=== PATIENT | female | born 1965 | race Hispanic/Latino ===

== ENCOUNTER 2017-05-19 15:12 | Emergency (ER) | payer MEDICAID, OTHER ==
[2017-05-19 15:24] VITALS: BP 132/74; RESP 16; TEMP 98; O2SAT 100
[2017-05-19] MEDS ORDERED: Sodium Chloride 0.9% 1,000 ML IV STA (16:38)
--- NOTE | 2017-05-19 17:02 | ED PDOC ---
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 Patient states her overall presentation of symptoms started yesterday that progressed to today when she experienced an associated headache that resolved after taking Motrin. She states she went to see her PMD, Dr. Steven Love, and found her Blood Pressure to be elevated. She was prescribed Losartan when leaving and took her first dose after getting her prescription filled at the pharmacy. She reports after taking the pill she started to develop dizziness while walking around associated with chest pain that resolved on its own. She sat on a bench and felt light-headed, prompting her to seek medical attention. Upon arrival via EMS , she still complains of dizziness, nausea, and light headedness. Patient further states yesterday she was feeling as if she was having an episode of an absence seizure but was unsure if it was absence or near-syncopal. Patient routinely takes medication for her seizures. Against Medical Advice - AMA Patient Left Against Medical Advice: The patient declines admission to the hospital and wishes to leave the Emergency Department. This action is against my medical advice. This decision was made with informed refusal. The patient was told that admission to the hospital is necessary. Explanation of the reasons why were discussed. The risks of leaving were explained to the patient and include, but are not limited to, worsening of known or currently unknown conditions, permanent disability and from undiagnosed or untreated conditions. The patient has the capacity to make this informed decision and understands my explanation of the current medical problem and risks of leaving. The patient voluntarily accepts these risks and signed an AMA form documenting our conversation. The patient was given the opportunity to ask questions and reconsider. The patient was encouraged to return to the Emergency Department at any time for further care. Past Medical History Reviewed: Historical Data, Nursing Documentation, Vital Signs Vital Signs: Last Vital Signs Temp 98.0 F 05/19/17 15:19 Pulse 70 05/19/17 15:19 Resp 16 05/19/17 15:19 BP 132/74 05/19/17 15:19 Pulse Ox 100 05/19/17 15:19 - Medical History PMH: HTN Other PMH: absence seizure - Surgical History Other surgeries: left breast lumpectomy - Family History Family History: States: No Known Family Hx - Home Medications Home Medications: Ambulatory Orders Medication Instructions Recorded Clindamycin [Cleocin] 300 mg PO TID #30 cap 08/04/14 - Allergies Allergies/Adverse Reactions: Allergies Allergy/AdvReac Type Severity Reaction Status Date / Time Penicillins Allergy RASH Verified 05/19/17 15:19 Sulfa (Sulfonamide Allergy RASH Verified 05/19/17 15:19 Antibiotics) Review of Systems ROS Statement: Except As Marked, All Systems Reviewed And Found Negative Cardiovascular: 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 Negative for: Weakness, Numbness Physical Exam - Reviewed Nursing Documentation Reviewed: Yes Vital Signs Reviewed: Yes - Physical Exam Appears: Positive for: Non-toxic, No Acute Distress. Negative for: Uncomfortable (pt appears comfortable ) Head Exam: Positive for: ATRAUMATIC, NORMOCEPHALIC Skin: Positive for: Normal Color. Negative for: Rash Eye Exam: Positive for: Normal appearance, EOMI, PERRL Neck: Positive for: Normal, Painless ROM, Supple Cardiovascular/Chest: Positive for: Regular Rate, Rhythm. Negative for: Murmur Respiratory: Positive for: Normal Breath Sounds. Negative for: Wheezing, Respiratory Distress Gastrointestinal/Abdominal: Positive for: Normal Exam, Soft. Negative for: Tenderness Extremity: Positive for: Normal ROM. 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 Negative for: Motor/Sensory Deficits - Laboratory Results Result Diagrams: 05/19/17 17:00 05/19/17 17:00 - ECG ECG: Positive for: Interpreted By Me, Viewed By Me ECG Rhythm: Positive for: Normal ST Segment, Sinus Rhythm, Right Bundle Branch Block. Negative for: ST/T Changes Rate: 60 O2 Sat by Pulse Oximetry: 100 Medical Decision Making Medical Decision Makin:24 Initial Impression- Dizziness- Differential diagnosis includes- (Losartan side effects, hypertensive urgency, less likely peripheral vertigo.) Chest Pain- Differential diagnosis includes but not limited to (ACS w/ resolution of symptoms, as well as persistent absence seizures.) Initial Plan- * EKG * BMP * Drug Screen * Troponin * Urine Dip * Urine Preg * CBC w/ differential * Antivert 25 mg PO * Sodium Chloride 1,000 ml IV * Zofran [address] HEAD FINDINGS: HEMORRHAGE: No intracranial hemorrhage. BRAIN: No mass effect or edema. No atrophy or chronic microvascular ischemic changes. VENTRICLES: Unremarkable. No hydrocephalus. CALVARIUM: Unremarkable. PARANASAL SINUSES: Unremarkable as visualized. No significant inflammatory changes. MASTOID AIR CELLS: Unremarkable as visualized. No inflammatory changes. OTHER FINDINGS: None. IMPRESSION: Normal CT of the Head. No intracranial mass, hemorrhage or evidence of acute infarct. Documented by Gladis Cummins, acting as a scribe for Ron Paez MD. All medical record entries made by the Scribe were at my direction and personally dictated by me. I have reviewed the chart and agree that the record accurately reflects my personal performance of the history, physical exam, medical decision making, and the department course for this patient. I have also personally directed, reviewed, and agree with the discharge instructions and disposition. Disposition - Clinical Impression Clinical Impression: Dizziness, Hypertension, Chest pain, Left against medical advice - Patient ED Disposition Is Patient to be Admitted: No Doctor Will See Patient In The: Office Counseled Patient/Family Regarding: Studies Performed, Diagnosis, Need For Followup - Disposition Referrals: Steven Love MD [Staff Provider] - Disposition: Against Medical Advice Disposition Time: 19:29 Condition: GOOD Additional Instructions: Take your medications daily. Return for worsening. Follow up with your PCP in 2- 3 days. You are leaving against medical advice. Thank you for allowing to take care of you today at [facility]. Instructions: Chest Pain (ED), Hypertension (ED), Dizziness (ED), Against Medical Advice (ED) HANSEL Risk Score for UA/NSTEMI - HANSEL Risk Score Age > 64: NO 3 or more CAD Risk Factors: NO Known CAD (Stenosis greater than 50%): NO Aspirin use in past 7 days: NO Severe Angina: NO EKG ST changes greater than 0.5mm: NO Positive Cardiac Marker: NO HANSEL Score: 0 Risk %: 5% Wells Criteria for PE - Wells Criteria for Pulmonary Embolism Clinical Signs and Symptoms of DVT: No P.E is #1 Diagnosis, or Equally Likely: No Heart Rate >100: No Immobilization at least 3 days;Surgery previous 4 weeks: No Previous, objectively diagnosed PE or DVT: No Hemoptysis: No Malignancy w/treatment within 6 months, or palliative: No Total Score: 0
[2017-05-19 17:20] LABS: BASO % 0.8 % (0.0-2.0); EOS # 0.1 K/uL (0.0-0.7); EOS % 1.2 % (0.0-4.0); HEMOGLOBIN 13.9 g/dL (12.0-16.0); LYMPH # 1.9 K/uL (1.0-4.3); LYMPH % 30.8 % (20.0-40.0); MEAN CELL VOLUME 90.9 fl (81.0-99.0); MEAN CORPUSCULAR HEMOGLOBIN 30.4 pg (27.0-31.0); MEAN CORPUSCULAR HGB CONC 33.4 g/dL (33.0-37.0); MEAN PLATELET VOLUME 8.2 fl (7.2-11.7); MONO # 0.6 K/uL (0.0-0.8); MONO % 10.7 % (0.0-10.0); NEUT # 3.4 K/uL (1.8-7.0); NEUT % 56.5 % (50.0-75.0); RBC 4.57 Mil/uL (3.80-5.20); RED CELL DISTRIBUTION WIDTH 13.2 % (11.5-14.5)
[2017-05-19 17:29] LABS: BLOOD UREA NITROGEN 18 mg/dl (7-17); CALCIUM 9.1 mg/dL (8.4-10.2); GFR AFRICAN-AMERICAN > 60; GFR NON-AFRICAN AMERICAN > 60
[2017-05-19 17:31] VITALS: PULSE 60
[2017-05-19 17:36] LABS: BARBITURATES, UR NEGATIVE (NEGATIVE); BENZODIAZEPINES, UR NEGATIVE (NEGATIVE); OPIATES, UR NEGATIVE (NEGATIVE); PHENCYCLIDINE, UR NEGATIVE (NEGATIVE)
--- NOTE | 2017-05-19 18:09 | CT ---
PROCEDURE: CT HEAD WITHOUT CONTRAST. HISTORY: dizziness COMPARISON: None available. TECHNIQUE: Axial computed tomography images were obtained through the head/brain without intravenous contrast. Radiation dose: Total exam DLP = 863.14 mGy-cm. This CT exam was performed using one or more of the following dose reduction techniques: Automated exposure control, adjustment of the mA and/or kV according to patient size, and/or use of iterative reconstruction technique. FINDINGS: HEMORRHAGE: No intracranial hemorrhage. BRAIN: No mass effect or edema. No atrophy or chronic microvascular ischemic changes. VENTRICLES: Unremarkable. No hydrocephalus. CALVARIUM: Unremarkable. PARANASAL SINUSES: Unremarkable as visualized. No significant inflammatory changes. MASTOID AIR CELLS: Unremarkable as visualized. No inflammatory changes. OTHER FINDINGS: None. IMPRESSION: Normal CT of the Head. No intracranial mass, hemorrhage or evidence of acute infarct.
--- NOTE | 2017-05-21 11:47 | CARD ---
APPROVED REPORT EKG Measurement Heart [id number] <Conclusion> Normal sinus rhythm Low voltage QRS Incomplete right bundle branch block Left anterior fascicular block Cannot rule out Anterior infarct, age undetermined Abnormal ECG
== END 2017-05-19 19:47 | disposition left against medical advice (07) ==
LOC: H.ER 15:12
DX: R42 Dizziness and giddiness (principal); I10 Essential (primary) hypertension; R07.89 Other chest pain; Z88.0 Allergy status to penicillin